=== PATIENT | female | born 1995 | race Caucasian/White ===

== ENCOUNTER 2017-07-23 19:29 | Emergency (ER) | payer OTHER ==
[2017-07-23 19:35] VITALS: BP 124/70; PULSE 82; RESP 20; TEMP 98.4
[2017-07-23] MEDS ORDERED: KETOROLAC 60 MG/2 ML VIAL IM STA (19:44)
[2017-07-23] MEDS ORDERED: ONDANSETRON ODT 4 MG TAB PO STA (19:47)
--- NOTE | 2017-07-23 20:02 | ED ---
General Adult HPI - General Chief complaint: Back Pain/Injury Stated complaint: Back pain Time Seen by Provider: 07/23/17 19:36 Source: patient, RN notes reviewed Mode of arrival: ambulatory Limitations: no limitations - History of Present Illness Initial comments: 22 yo female presents to the ER with cc of flare up of her chronic back pain as well as some nausea. she states that a few days ago she had cardiac arrest and since she's had a little nausea on and off. Patient states that she is here today because she had a flareup of her chronic back pain. She states that she often has to spit it just seems worse than normal. She denies any changes in urination. There is no fever or chills. She states that she was concerned due to the symptoms so she thought that she should be evaluated. She stated "typical back pain in the lower back. There is some radiation up the back. Patient denies any recent fever, chills, shortness of breath, chest pain, abdominal pain, nausea vomiting, numbness or tingling, dysuria or hematuria, constipation or diarrhea, headaches or visual changes, or any other current symptoms. - Related Data Home Medications Medication Instructions Recorded Confirmed No Known Home Medications [No 08/13/15 07/23/17 Known Home Medications] Allergies Allergy/AdvReac Type Severity Reaction Status Date / Time venom-honey bee Allergy Swelling Verified 07/23/17 19:34 [bee venom (honey bee)] Review of Systems ROS Statement: Those systems with pertinent positive or pertinent negative responses have been documented in the HPI. ROS Other: All systems not noted in ROS Statement are negative. Past Medical History Past Medical History: No Reported History History of Any Multi-Drug Resistant Organisms: None Reported Additional Past Surgical History / Comment(s): dev. septum Past Psychological History: No Psychological Hx Reported Smoking Status: Current some day smoker Past Alcohol Use History: None Reported Past Drug Use History: None Reported General Exam - General Exam Comments Initial Comments: General: The patient is awake and alert, in no distress, and does not appear acutely ill. Eye: Pupils are equal, round and reactive to light, extra-ocular movements are intact; there is normal conjunctiva bilaterally. No signs of icterus. Ears, nose, mouth and throat: There are moist mucous membranes. Neck: The neck is supple, there is no tenderness. Cardiovascular: There is a regular rate and rhythm. No murmur, rub or gallop is appreciated. Respiratory: Lungs are clear to auscultation, respirations are non-labored, breath sounds are equal. No wheezes, stridor, rales, or rhonchi. Gastrointestinal: Soft, non-distended, non-tender abdomen without masses or organomegaly noted. There is no rebound or guarding present. No CVA tenderness. Bowel sounds are unremarkable. Back: There is no tenderness to palpation in the midline. There is no obvious deformity. No rashes noted. Musculoskeletal: Normal ROM, no tenderness, There is no pedal edema. There is no calf tenderness or swelling. Sensation intact. Pulses equal bilaterally 2+. Neurological: CN II-XII intact, There are no obvious motor or sensory deficits. Coordination appears grossly intact. Speech is normal. Skin: Skin is warm and dry and no rashes or lesions are noted. Psychiatric: Cooperative, appropriate mood & affect, normal judgment. Limitations: no limitations Course Vital Signs 07/23/17 19:31 Temperature 98.4 F Pulse Rate 82 Respiratory 20 Rate Blood Pressure 124/70 O2 Sat by Pulse 100 Oximetry Medical Decision Making - Medical Decision Making 22-year-old female presents to the emergency department with a chief complaint of back pain. She does suffer from chronic back pain.at this time x-rays reviewed as well as urinalysis. At this time we discussed continuing Motrin Tylenol for pain. We discussed return parameters and follow-up and all questions. Patient stated that she understood and she is agreement this plan. All questions have been answered. She will be discharged. - Lab Data Lab Results 07/23/17 07/23/17 Range/Units 19:47 19:47 Urine Color Colorless Urine Appearance Clear (Clear) Urine pH 5.5 (5.0-8.0) Ur Specific [place] 1.004 (1.001-1.035) Urine Protein Negative (Negative) Urine Glucose (UA) Negative (Negative) Urine Ketones Negative (Negative) Urine Blood Small H (Negative) Urine Nitrite Negative (Negative) Urine Bilirubin Negative (Negative) Urine Urobilinogen <2.0 (<2.0) mg/dL Ur Leukocyte Esterase Negative (Negative) Urine RBC 1 (0-5) /hpf Urine WBC 2 (0-5) /hpf Ur Squamous Epith Cells 1 (0-4) /hpf Urine Bacteria Rare H (None) /hpf Urine Mucus Rare H (None) /hpf Urine HCG, Qual Not Detected (Not Detectd) - Radiology Data Radiology results: report reviewed, image reviewed Disposition Clinical Impression: Strain of lumbar region, Nausea Disposition: HOME SELF-CARE Condition: Stable Instructions: Chronic Back Pain (ED) Additional Instructions: Please use medication as discussed. Please follow up with family doctor if symptoms have not improved over the next two days. Please return to the emergency room if your symptoms increase or worsen or for any other concerns. Referrals: Adalgisa Cadena III, MD [STAFF PHYSICIAN] - 1-2 days Time of Disposition: 20:58
[2017-07-23 20:04] LABS: Appearance,Urine Clear (Clear); Bacteria,Urine Rare /hpf; Bilirubin,Urine Negative (Negative); Blood,Urine Small (Negative); Color,Urine Colorless; Glucose,Urine (UA) Negative (Negative); Ketones,Urine Negative (Negative); Leukocyte Esterase,Urine Negative (Negative); Mucus,Urine Rare /hpf; Nitrite,Urine Negative (Negative); PH, Urine 5.5 (5.0-8.0); Protein,Urine Negative (Negative); RBC,Urine 1 /hpf (0-5); Specific Gravity,Urine 1.004 (1.001-1.035); Squamous Epithelial Cell,Urine 1 /hpf (0-4); Urobilinogen,Urine <2.0 mg/dL (<2.0); WBC,Urine 2 /hpf (0-5)
--- NOTE | 2017-07-23 20:51 | XR ---
EXAMINATION TYPE: XR lumbar spine 2 or 3V DATE OF EXAM: 07/23/2017 COMPARISON: NONE HISTORY: Back pain TECHNIQUE: 3 views FINDINGS: The lumbar vertebra have normal alignment. Posterior elements are intact. Disc spaces are n ormal. IMPRESSION: Normal lumbar spine
== END 2017-07-23 21:03 | disposition home or self-care (01) ==
LOC: EC 19:29
DX: S39.012A Strain of muscle, fascia and tendon of lower back, initial encounter (principal); R11.0 Nausea; F17.200 Nicotine dependence, unspecified, uncomplicated; Z91.030 Bee allergy status
CPT/HCPCS: 81001; 81025; 87086; 72100; 99283; 96372; J1885

== ENCOUNTER 2018-01-22 16:34 | Emergency (ER) | payer OTHER ==
[2018-01-22 16:54] VITALS: BP 121/76; PULSE 77; RESP 16; TEMP 98.4
--- NOTE | 2018-01-22 17:25 | ED ---
Recheck HPI - General Chief Complaint: Recheck/Abnormal Lab/Rx Stated Complaint: test Time Seen by Provider: 01/22/18 17:11 Source: patient, RN notes reviewed Mode of arrival: ambulatory Limitations: no limitations - History of Present Illness Initial Comments: This is a 22-year-old female who presents to the emergency department with request for test. Patient states that she has been trying to get for 3 years. She states that this coming Wednesday she has an appointment for IVF consult. She states that her period has been 4 weeks late. She took two at-home tests which were positive. Patient presents to the emergency department requesting a test to confirm. Denies any fevers or chills, chest pain or firmness of breath, abdominal pain, vaginal bleeding, nausea or vomiting, diarrhea or constipation. - Related Data Home Medications Medication Instructions Recorded Confirmed No Known Home Medications 08/13/15 07/23/17 Allergies Allergy/AdvReac Type Severity Reaction Status Date / Time venom-honey bee Allergy Swelling Verified 01/22/18 16:54 [bee venom (honey bee)] Review of Systems ROS Statement: Those systems with pertinent positive or pertinent negative responses have been documented in the HPI. ROS Other: All systems not noted in ROS Statement are negative. Past Medical History Past Medical History: No Reported History History of Any Multi-Drug Resistant Organisms: None Reported Additional Past Surgical History / Comment(s): dev. septum Past Psychological History: No Psychological Hx Reported Smoking Status: Current every day smoker Past Alcohol Use History: None Reported Past Drug Use History: None Reported General Exam - General Exam Comments Initial Comments: General: Awake and alert, well-developed; in no apparent distress. HEENT: Head atraumatic, normocephalic. Pupils are equal, round and reactive to light. Extraocular movements intact. Oropharynx moist without erythema or exudate. Neck: Supple. Normal ROM. Cardiovascular: Regular rate and rhythm. No murmurs, rubs or gallops. Chest symmetrical. Respiratory: Lungs clear to auscultation bilaterally. No wheezes, rales or rhonchi. Normal respiratory effort with no use of accessory muscles. Musculoskeletal: Normal ROM, no tenderness bilateral upper and lower extremities. Ambulating normally. Skin: [place], warm and dry without rashes or lesions. Neurological: Alert and oriented x3. CN II-XII grossly intact. Speech is fluent and answers are appropriate. No focal neuro deficits. Psychiatric: Normal mood and affect. No overt signs of depression or anxiety noted. Limitations: no limitations Course Vital Signs 01/22/18 16:51 Temperature 98.4 F Pulse Rate 77 Respiratory 16 Rate Blood Pressure 121/76 O2 Sat by Pulse 100 Oximetry Medical Decision Making - Medical Decision Making This is a 22-year-old female who presents to the emergency department with request for urine test. test is positive. Patient excited with results. Vitals are stable and she is in no acute distress. She will be discharged home at this time. Recommended following up with an P[employer] WORKER. She is in agreement and voices understanding. All questions answered. - Lab Data Lab Results 01/22/18 Range/Units 17:00 Urine HCG, Qual Detected (Not Detectd) Disposition Clinical Impression: Positive urine test Disposition: HOME SELF-CARE Condition: Good Instructions: (ED) Additional Instructions: Please follow-up with an P[employer]Y WORKER. Please follow up with primary care provider within 1-2 days. Return to emergency department if symptoms should worsen or any concerns arise. Is patient prescribed a controlled substance at d/c from ED?: No Referrals: Loretta Cortez MD [Primary Care Provider] - 1-2 days Cata Rapp MD [STAFF PHYSICIAN] - 1-2 days Time of Disposition: 17:25
== END 2018-01-22 17:27 | disposition home or self-care (01) ==
LOC: EC 16:34
DX: Z32.01 Encounter for pregnancy test, result positive (principal); O99.330 Smoking (tobacco) complicating pregnancy, unspecified trimester; F17.200 Nicotine dependence, unspecified, uncomplicated; Z91.030 Bee allergy status; Z3A.00 Weeks of gestation of pregnancy not specified
CPT/HCPCS: 81025; 99281

== ENCOUNTER 2018-03-19 17:57 | Emergency (ER) | payer OTHER ==
[2018-03-19] MEDS ORDERED: ONDANSETRON 4 MG/2 ML VIAL IVP STA (18:26)
[2018-03-19] MEDS ORDERED: KETOROLAC 30 MG/ML 1 ML VIAL IVP STA (18:26)
[2018-03-19] MEDS ORDERED: MORPHINE SULFATE 2 MG/ML SYRINGE IVP STA (18:26)
[2018-03-19] MEDS ORDERED: SODIUM CHLORIDE 0.9% 1,000 ML IV ONE (18:26)
--- NOTE | 2018-03-19 18:48 | ED ---
Female Urogenital HPI - General Source: patient Mode of arrival: ambulatory Limitations: no limitations <Marilu Gilliland - Last Filed: 03/20/18 04:40> <Suys Acevedo - Last Filed: 03/22/18 01:08> - General Chief complaint: Vaginal Bleeding Stated complaint: POSS MISCARRAGE Time Seen by Provider: 03/19/18 18:12 - History of Present Illness Initial comments: 23-year-old female patient who is approximately 11 weeks with her first presents to the emergency department today for evaluation of increased vaginal bleeding. Patient states that she was diagnosed with a miscarriage by her CMS EXPERT. The patient states she was scheduled to have a D&C performed on Wednesday however she did start having bleeding on Wednesday so they were monitoring to see if she would spontaneously passed products of conception. Patient states that patient had increase in vaginal bleeding last evening however today it is been much worse. Patient states she has been passing large clots. She is reporting low back pain and lower abdominal pain. She states the pain is 10x worse than her usual period pain. Patient denies any fevers or chills. She denies any dysuria, urinary urgency, urinary frequency. States that she is nauseated with this as not vomited. Patient denies any recent rash, shortness breath, chest pain, diarrhea, constipation, numbness, tingling, dizziness, weakness, headache, visual changes, or any other complaints. (Marilu Gilliland) - Related Data Previous Rx's Medication Instructions Recorded Ibuprofen [Motrin] 600 mg PO Q8HR PRN #30 tab 03/19/18 Allergies Allergy/AdvReac Type Severity Reaction Status Date / Time venom-honey bee Allergy Swelling Verified 01/22/18 16:54 [bee venom (honey bee)] Review of Systems ROS Other: All systems not noted in ROS Statement are negative. <Marilu Gilliland - Last Filed: 03/20/18 04:40> ROS Other: All systems not noted in ROS Statement are negative. <Susy Acevedo - Last Filed: 03/22/18 01:08> ROS Statement: Those systems with pertinent positive or pertinent negative responses have been documented in the HPI. Past Medical History Past Medical History: No Reported History History of Any Multi-Drug Resistant Organisms: None Reported Additional Past Surgical History / Comment(s): dev. septum, oral surgery Past Psychological History: No Psychological Hx Reported Smoking Status: Current every day smoker Past Alcohol Use History: None Reported Past Drug Use History: None Reported <Marilu Gilliland Della - Last Filed: 03/20/18 04:40> General Exam Limitations: no limitations General appearance: alert, in no apparent distress, other (This is a well- developed, well-nourished adult female patient in no acute distress. Vital signs upon presentation are temperature 97.2F, pulse 74, respirations 18, blood pressure 136/69, pulse ox 98% on room air.) Eye exam: Present: normal appearance, PERRL, EOMI. Absent: scleral icterus, conjunctival injection, periorbital swelling ENT exam: Present: normal exam, normal oropharynx Respiratory exam: Present: normal lung sounds bilaterally. Absent: respiratory distress, wheezes, rales, rhonchi, stridor Cardiovascular Exam: Present: regular rate, normal rhythm, normal heart sounds. Absent: systolic murmur, diastolic murmur, rubs, gallop, clicks GI/Abdominal exam: Present: soft, normal bowel sounds. Absent: distended, tenderness, guarding, rebound, rigid Speculum exam: Present: vaginal bleeding, tissue, other (large clots) By manual exam: Present: uterine enlargement, uterine tenderness Back exam: Present: normal inspection. Absent: CVA tenderness (R), CVA tenderness (L) Neurological exam: Present: alert, oriented X3, CN II-XII intact Psychiatric exam: Present: normal affect, normal mood Skin exam: Present: warm, dry, intact, normal color. Absent: rash <Marilu Gilliland Della - Last Filed: 03/20/18 04:40> Vital Signs 03/19/18 03/19/18 18:07 21:06 Temperature 97.2 F L 98.4 F Pulse Rate 74 72 Respiratory 18 16 Rate Blood Pressure 136/69 110/53 O2 Sat by Pulse 98 98 Oximetry Medical Decision Making - Lab Data Result diagrams: 03/19/18 18:53 03/19/18 18:53 - Radiology Data Radiology results: report reviewed <Marilu Gilliland Della - Last Filed: 03/20/18 04:40> - Lab Data Result diagrams: 03/19/18 18:53 03/19/18 18:53 <Susy Acevedo - Last Filed: 03/22/18 01:08> - Medical Decision Making 23-year-old female patient presents to the emergency department today for evaluation of increased vaginal bleeding. Patient was diagnosed with demise at her CMS EXPERT's office and did start having bleeding on Wednesday. There were continuing to monitor her however patient had increased bleeding over the last couple of days so she presented here for further evaluation. Physical examination did reveal some lower abdominal tenderness. I did perform pelvic examination which did reveal copious amounts of blood in the vagina with large clots. I did pull what appeared to be a gestational sac from the cervical canal , this has been sent to the lab for evaluation. Patient did have ultrasound which did show some thickened endometrium which could be retained products of conception. Labs were reviewed and were unremarkable. Patient's vital signs remained stable throughout visit. I did recheck vaginal bleeding and it seems to have slowed significantly. I did call and discuss the case with the patient' s CMS EXPERT Dr. Mejia, she did recommend that we call our CMS EXPERT congressional aide and discussed the case with them for further guidance. My attending Dr. Acevedo did speak to Dr. Morley the CMS EXPERT on-call who recommends that patient follow -up with her CMS EXPERT as soon as possible. Patient was informed of all results and plan. She is instructed to call her CMS EXPERT for an appointment on Wednesday. Return parameters were discussed in detail. She verbalizes understanding and agrees with this plan. (Marilu Gilliland) Patient care was discussed with gynecology on-call Dr. Morley. Patient with known intrauterine demise with plan for D&C now having vaginal bleeding. Vaginal bleeding decreased significantly after evacuation of clots and products of conception from the cervix. Patient remains hemodynamically stable with a stable hemoglobin. At this time the patient is stable for discharge home and follow-up with her (Susy Acevedo) - Lab Data Lab Results 03/19/18 03/19/18 03/19/18 Range/Units 18:53 18:53 18:53 WBC 9.1 (3.8-10.6) k/uL RBC 4.05 (3.80-5.40) m/uL Hgb 12.3 (11.4-16.0) gm/dL Hct 38.0 (34.0-46.0) % MCV 93.8 (80.0-100.0) fL MCH 30.3 (25.0-35.0) pg MCHC 32.3 (31.0-37.0) g/dL RDW 12.5 (11.5-15.5) % Plt Count 249 (150-450) k/uL Neutrophils % 74 % Lymphocytes % 18 % Monocytes % 5 % Eosinophils % 2 % Basophils % 0 % Neutrophils # 6.7 (1.3-7.7) k/uL Lymphocytes # 1.7 (1.0-4.8) k/uL Monocytes # 0.5 (0-1.0) k/uL Eosinophils # 0.2 (0-0.7) k/uL Basophils # 0.0 (0-0.2) k/uL Sodium 138 (137-145) mmol/L Potassium 3.9 (3.5-5.1) mmol/L Chloride 108 H (98-107) mmol/L Carbon Dioxide 21 L (22-30) mmol/L Anion Gap 9 mmol/L BUN 4 L (7-17) mg/dL Creatinine 0.57 (0.52-1.04) mg/dL Est GFR (CKD-EPI)AfAm >90 (>60 ml/min/1.73 sqM) Est GFR (CKD-EPI)NonAf >90 (>60 ml/min/1.73 sqM) Glucose 93 (74-99) mg/dL Calcium 9.2 (8.4-10.2) mg/dL Total Bilirubin 0.4 (0.2-1.3) mg/dL AST 20 (14-36) U/L ALT 17 (9-52) U/L Alkaline Phosphatase 100 (38-126) U/L Total Protein 6.9 (6.3-8.2) g/dL Albumin 3.9 (3.5-5.0) g/dL Blood Type O Positive Blood Type Recheck No - Radiology Data Transvaginal and transabdominal ultrasound was obtained. Report was reviewed in its entirety. Impression by Dr. Lopez shows complex thickened area in the endometrial cavity that could relate to incomplete . No adnexal mass. (Marilu Gilliland) Disposition Is patient prescribed a controlled substance at d/c from ED?: No Time of Disposition: 22:11 <Marilu Gilliland M - Last Filed: 03/20/18 04:40> <Susy Acevedo P - Last Filed: 03/22/18 01:08> Clinical Impression: Spontaneous Disposition: HOME SELF-CARE Condition: Good Instructions: Miscarriage (ED) Additional Instructions: Take medication as directed. Follow-up with your CMS EXPERT for recheck as soon as possible. Return here immediately for any new, worsening, or concerning symptoms. Prescriptions: Ibuprofen [Motrin] 600 mg PO Q8HR PRN #30 tab PRN Reason: Pain Referrals: Loretta Cortez MD [Primary Care Provider] - 1-2 days
[2018-03-19 19:06] LABS: Basophils % (A) 0 %; Eosinophils # (A) 0.2 k/uL (0-0.7); Eosinophils % (A) 2 %; HGB 12.3 gm/dL (11.4-16.0); Lymphocytes # (A) 1.7 k/uL (1.0-4.8); Lymphocytes % (A) 18 %; MCH 30.3 pg (25.0-35.0); MCHC 32.3 g/dL (31.0-37.0); MCV 93.8 fL (80.0-100.0); Mean Platelet Volume 6.8; Monocytes # (A) 0.5 k/uL (0-1.0); Monocytes % (A) 5 %; Neutrophils # (A) 6.7 k/uL (1.3-7.7); Neutrophils % (A) 74 %; Platelet Count 249 k/uL (150-450); RBC 4.05 m/uL (3.80-5.40); RDW 12.5 % (11.5-15.5); WBC 9.1 k/uL (3.8-10.6)
[2018-03-19 19:38] LABS: ALT 17 U/L (9-52); AST 20 U/L (14-36); Albumin 3.9 g/dL (3.5-5.0); Alkaline Phosphatase 100 U/L (38-126); Anion Gap 9 mmol/L; Blood Urea Nitrogen 4 mg/dL (7-17); Calcium 9.2 mg/dL (8.4-10.2); Carbon Dioxide 21 mmol/L (22-30); Chloride 108 mmol/L (98-107); Glucose 93 mg/dL (74-99); Potassium 3.9 mmol/L (3.5-5.1); Sodium 138 mmol/L (137-145); Total Bilirubin 0.4 mg/dL (0.2-1.3); Total Protein 6.9 g/dL (6.3-8.2)
--- NOTE | 2018-03-19 20:18 | US ---
EXAMINATION TYPE: Transabdominal DATE OF EXAM: 10/05/17 COMPARISON: NONE CLINICAL HISTORY: Pain. Increased vaginal bleeding x 6 days in early ; G1 EXAM PERFORMED: Transvaginal (TV) and Transabdominal (TA) EXAM MEASUREMENTS: GESTATIONAL AGE / DATING Physician Established: (12 weeks/1 day) EDC: 09/30/2018 Dates by LMP: (12 weeks/1 day) EDC: 09/30/2018 Dates by First Scan: no prior US here Dates by Current Scan for: no live IUP seen today at this facility MATERNAL ANATOMY Uterus: 9.5 x 6.4 x 4.9cm Right Ovary: 2.2 x 1.1 x 1.1cm Left Ovary: 2.4 x 2.6 x 1.6cm Post CDS / Adnexa: wnl Presence of free fluid: minimal Cul De Sac fluid seen at cervix on Transvaginal US after post void Presence of corpus luteal cyst: not seen Presence of subchorionic bleed: complex and thickened endometrium is seen throughout and complex are a extends into cervix; small, irregular cystic clustered area in upper endometrium = 0.9 x 0.9 x 0.5c m and could represent products of conception. GESTATION / SURVEY CRL: no pole seen MSD: no normal appearing gestational sac with decidual reaction is seen Date of LMP: 12/24/2017 Beta HcG (if available): NA IMPRESSION: There is complex thickened area in the endometrial cavity the could relate to incomplete . No adnexal mass.
[2018-03-19 21:07] VITALS: BP 110/53; PULSE 72; RESP 16; TEMP 98.4
== END 2018-03-19 22:20 | disposition home or self-care (01) ==
LOC: EC 17:57
DX: O03.9 Complete or unspecified spontaneous abortion without complication (principal); O99.89 Other specified diseases and conditions complicating pregnancy, childbirth and the puerperium; R11.0 Nausea; O99.331 Smoking (tobacco) complicating pregnancy, first trimester; Z3A.11 11 weeks gestation of pregnancy; F17.200 Nicotine dependence, unspecified, uncomplicated; Z91.030 Bee allergy status
CPT/HCPCS: 36415; 86900; 86901; 80053; 85025; 76801; 76817; 99284; 96374; 96375 ×2; 96361 ×2; J2405; J1885; J2270; 88305

== ENCOUNTER 2023-11-26 18:06 | Emergency (ER) | payer OTHER ==
[2023-11-26 18:23] VITALS: RESP 18; TEMP 98.2
--- NOTE | 2023-11-26 19:12 | ED ---
Female Urogenital HPI - General Chief complaint: Vaginal Bleeding Stated complaint: vag bleeding,6 weeks preg Time Seen by Provider: 11/26/23 18:34 Source: patient, RN notes reviewed Mode of arrival: ambulatory Limitations: no limitations - History of Present Illness Initial comments: This is a 28-year-old female who presents to the emergency department for vaginal bleeding. Patient is and 6 weeks . States that the bleeding started yesterday. Describes this as more of a spotting. She has mild cramping of the lower abdomen. She is scheduled to see Joce Pathak for [facility] care on 12/07. She did have her hCG count checked 3 days ago and states that it was 6000. - Related Data Previous Rx's Medication Instructions Recorded Ibuprofen [Motrin] 600 mg PO Q8HR PRN #30 tab 03/19/18 Allergies Allergy/AdvReac Type Severity Reaction Status Date / Time venom-honey bee Allergy Swelling Verified 11/26/23 18:14 [bee venom (honey bee)] Review of Systems ROS Statement: Those systems with pertinent positive or pertinent negative responses have been documented in the HPI. ROS Other: All systems not noted in ROS Statement are negative. Past Medical History Past Medical History: No Reported History History of Any Multi-Drug Resistant Organisms: None Reported Additional Past Surgical History / Comment(s): dev. septum, oral surgery Past Psychological History: No Psychological Hx Reported Past Alcohol Use History: None Reported Past Drug Use History: None Reported General Exam Limitations: no limitations General appearance: alert, in no apparent distress Head exam: Present: atraumatic, normocephalic, normal inspection Respiratory exam: Present: normal lung sounds bilaterally. Absent: respiratory distress, wheezes, rales, rhonchi, stridor Cardiovascular Exam: Present: regular rate, normal rhythm, normal heart sounds. Absent: systolic murmur, diastolic murmur, rubs, gallop, clicks Neurological exam: Present: alert, oriented X3, CN II-XII intact Psychiatric exam: Present: normal affect, normal mood Skin exam: Present: warm, dry, intact, normal color. Absent: rash Course Vital Signs 11/26/23 11/26/23 18:11 22:15 Temperature 98.2 F Pulse Rate 91 87 Respiratory 18 18 Rate Blood Pressure 160/87 113/77 O2 Sat by Pulse 100 99 Oximetry Medical Decision Making - Medical Decision Making This is a 28 year old female who presents to the emergency department for vaginal bleeding in . Was pt. sent in by a medical professional or institution? @ -No Did you speak to anyone other than the patient for history? @ -No Did you review nursing and triage notes? @ -Yes, and I agree, it is accurate with regards to the patient's symptoms. Were old charts reviewed? @ -No Differential Diagnosis? @ -Differential Vaginal Bleeding: Spontaneous , threatened , molar , ectopic , incompetent cervix, placenta previa, uterine rupture, dysfunctional uterine bleeding, hemorrhage, uterine fibroids, malignancy, coagulopathy, PID, cervicitis, adenomyosis, vaginal trauma, this is not meant to be an all- inclusive list. EKG interpreted by me (3pts min.)? @ -Not obtained X-rays interpreted by me (1pt min.)? @ -Not obtained CT interpreted by me (1pt min.)? @ -Not obtained U/S interpreted by me (1pt. min.)? @ - ultrasound obtained. My interpretation identifies a gestational sac. What testing was considered but not performed? (CT, X-rays, U/S, labs)? Why? @ -None What meds were considered but not given? Why? @ -None Did you discuss the management of the patient with other professionals? @ -No Did you reconcile home meds? @ -No Was smoking cessation discussed for >3mins.? @ -No Was critical care preformed (if so, how long)? @ -No Were there social determinants of health that impacted care today? How? (Homelessness, low income, unemployed, alcoholism, drug addiction, transportation, low edu. Level, literacy, decrease access to med. care, snf, rehab)? @ -No Was there de-escalation of care discussed even if they declined? (Discuss DNR or withdrawal of care, Hospice)? @ -No What co-morbidities impacted this encounter? (DM, HTN, Smoking, COPD, CAD, Cancer, CVA, Hep., AIDS, mental health diagnosis, sleep apnea, morbid obesity)? @ - Was patient admitted / discharged? @ -Discharged. Lab work demonstrates a beta-hCG of 12,019. Patient is Rh+ and no RhoGAM is indicated. Urinalysis negative for signs of infection. ultrasound obtained demonstrating a gestational sac with suspected yolk sac. pole is not identified at this time. Advised possibilities of a blighted ovum in early . Findings reviewed with the patient. She was given a lab slip to have her hCG count repeated in 48 hours. Otherwise advised follow- up with her [facility]. Undiagnosed new problem with uncertain prognosis? @ -None Drug Therapy requiring intensive monitoring for toxicity (Heparin, Nitro, Insulin, Cardizem)? @ -None Were any procedures done? @ -None Diagnosis/symptom? @ -Vaginal bleeding in Acute, or Chronic, or Acute on Chronic? @ -Acute Uncomplicated (without systemic symptoms) or Complicated (systemic symptoms)? @ -Uncomplicated Side effects of treatment? @ -None Exacerbation, Progression, or Severe Exacerbation] @ -Not applicable Poses a threat to life or bodily function? @ -No Return precautions reviewed in depth, the patient is instructed to return to the emergency department with any new, worsening, or concerning symptoms. Patient verbalized understanding. This case was discussed in detail with the attending ED physician, Dr. White. Presentation, findings, and treatment plan discussed in detail as well. - Lab Data Result diagrams: 11/26/23 20:06 11/26/23 20:06 Lab Results 11/26/23 11/26/23 11/26/23 Range/Units 19:39 20:06 20:06 WBC 9.8 (3.8-10.6) k/uL RBC 4.43 (3.80-5.40) m/uL Hgb 13.6 (11.4-16.0) gm/dL Hct 42.0 (34.0-46.0) % MCV 94.8 (80.0-100.0) fL MCH 30.8 (25.0-35.0) pg MCHC 32.5 (31.0-37.0) g/dL RDW 12.8 (11.5-15.5) % Plt Count 328 (150-450) k/uL MPV 8.0 Neutrophils % 65 % Lymphocytes % 26 % Monocytes % 5 % Eosinophils % 2 % Basophils % 0 % Neutrophils # 6.4 (1.3-7.7) k/uL Lymphocytes # 2.6 (1.0-4.8) k/uL Monocytes # 0.5 (0-1.0) k/uL Eosinophils # 0.2 (0-0.7) k/uL Basophils # 0.0 (0-0.2) k/uL Sodium 136 L (137-145) mmol/L Potassium 4.3 (3.5-5.1) mmol/L Chloride 106 (98-107) mmol/L Carbon Dioxide 24 (22-30) mmol/L Anion Gap 6 mmol/L BUN 7 (7-17) mg/dL Creatinine 0.55 (0.52-1.04) mg/dL Est GFR (CKD-EPI)AfAm >90 (>60 ml/min/1.73 sqM) Est GFR (CKD-EPI)NonAf >90 (>60 ml/min/1.73 sqM) Glucose 84 (74-99) mg/dL Calcium 9.0 (8.4-10.2) mg/dL Total Bilirubin 0.3 (0.2-1.3) mg/dL AST 22 (14-36) U/L ALT 13 (4-34) U/L Alkaline Phosphatase 141 H (38-126) U/L Total Protein 7.2 (6.3-8.2) g/dL Albumin 4.0 (3.5-5.0) g/dL HCG, Quant 15932.3 mIU/mL Urine Color Colorless Urine Appearance Clear (Clear) Urine pH 6.5 (5.0-8.0) Ur Specific Marlin 1.004 (1.001-1.035) Urine Protein Negative (Negative) Urine Glucose (UA) Negative (Negative) Urine Ketones Negative (Negative) Urine Blood Small H (Negative) Urine Nitrite Negative (Negative) Urine Bilirubin Negative (Negative) Urine Urobilinogen <2.0 (<2.0) mg/dL Ur Leukocyte Esterase Negative (Negative) Urine RBC 2 (0-5) /hpf Urine WBC <1 (0-5) /hpf Ur Squamous Epith Cells 1 (0-4) /hpf Blood Type Blood Type Recheck Bld Type Recheck Status 11/26/23 Range/Units 20:06 WBC (3.8-10.6) k/uL RBC (3.80-5.40) m/uL Hgb (11.4-16.0) gm/dL Hct (34.0-46.0) % MCV (80.0-100.0) fL MCH (25.0-35.0) pg MCHC (31.0-37.0) g/dL RDW (11.5-15.5) % Plt Count (150-450) k/uL MPV Neutrophils % % Lymphocytes % % Monocytes % % Eosinophils % % Basophils % % Neutrophils # (1.3-7.7) k/uL Lymphocytes # (1.0-4.8) k/uL Monocytes # (0-1.0) k/uL Eosinophils # (0-0.7) k/uL Basophils # (0-0.2) k/uL Sodium (137-145) mmol/L Potassium (3.5-5.1) mmol/L Chloride (98-107) mmol/L Carbon Dioxide (22-30) mmol/L Anion Gap mmol/L BUN (7-17) mg/dL Creatinine (0.52-1.04) mg/dL Est GFR (CKD-EPI)AfAm (>60 ml/min/1.73 sqM) Est GFR (CKD-EPI)NonAf (>60 ml/min/1.73 sqM) Glucose (74-99) mg/dL Calcium (8.4-10.2) mg/dL Total Bilirubin (0.2-1.3) mg/dL AST (14-36) U/L ALT (4-34) U/L Alkaline Phosphatase (38-126) U/L Total Protein (6.3-8.2) g/dL Albumin (3.5-5.0) g/dL HCG, Quant mIU/mL Urine Color Urine Appearance (Clear) Urine pH (5.0-8.0) Ur Specific Marlin (1.001-1.035) Urine Protein (Negative) Urine Glucose (UA) (Negative) Urine Ketones (Negative) Urine Blood (Negative) Urine Nitrite (Negative) Urine Bilirubin (Negative) Urine Urobilinogen (<2.0) mg/dL Ur Leukocyte Esterase (Negative) Urine RBC (0-5) /hpf Urine WBC (0-5) /hpf Ur Squamous Epith Cells (0-4) /hpf Blood Type O Positive Blood Type Recheck O Pos Bld Type Recheck Status No - Radiology Data Radiology results: report reviewed, image reviewed Disposition Clinical Impression: Vaginal bleeding during Disposition: HOME SELF-CARE Additional Instructions: Return to the emergency department with any new, worsening, or concerning symptoms. We will contact you to follow-up on the results of your ultrasound when they come back. Take the lab slip to have your beta hCG count repeated in the next 48 hours. Is patient prescribed a controlled substance at d/c from ED?: No Referrals: Jorge Luis Diamond MD [Primary Care Provider] - 1-2 days Time of Disposition: 20:04
[2023-11-26 19:47] LABS: Appearance,Urine Clear (Clear); Bilirubin,Urine Negative (Negative); Blood,Urine Small (Negative); Color,Urine Colorless; Glucose,Urine (UA) Negative (Negative); Ketones,Urine Negative (Negative); Leukocyte Esterase,Urine Negative (Negative); Nitrite,Urine Negative (Negative); PH, Urine 6.5 (5.0-8.0); Protein,Urine Negative (Negative); RBC,Urine 2 /hpf (0-5); Specific Gravity,Urine 1.004 (1.001-1.035); Squamous Epithelial Cell,Urine 1 /hpf (0-4); Urobilinogen,Urine <2.0 mg/dL (<2.0); WBC,Urine <1 /hpf (0-5)
[2023-11-26 20:18] LABS: Basophils % (A) 0 %; Eosinophils # (A) 0.2 k/uL (0-0.7); Eosinophils % (A) 2 %; HGB 13.6 gm/dL (11.4-16.0); Lymphocytes # (A) 2.6 k/uL (1.0-4.8); Lymphocytes % (A) 26 %; MCH 30.8 pg (25.0-35.0); MCHC 32.5 g/dL (31.0-37.0); MCV 94.8 fL (80.0-100.0); Monocytes # (A) 0.5 k/uL (0-1.0); Monocytes % (A) 5 %; Neutrophils # (A) 6.4 k/uL (1.3-7.7); Neutrophils % (A) 65 %; Platelet Count 328 k/uL (150-450); RBC 4.43 m/uL (3.80-5.40); RDW 12.8 % (11.5-15.5); WBC 9.8 k/uL (3.8-10.6)
[2023-11-26 20:32] LABS: ALT 13 U/L (4-34); AST 22 U/L (14-36); African American GFR (CKD) >90 (>60 ml/min/1.73 sqM); Alkaline Phosphatase 141 U/L (38-126); Anion Gap 6 mmol/L; Blood Urea Nitrogen 7 mg/dL (7-17); Carbon Dioxide 24 mmol/L (22-30); Chloride 106 mmol/L (98-107); Glucose 84 mg/dL (74-99); Non-African American GFR(CKD) >90 (>60 ml/min/1.73 sqM); Potassium 4.3 mmol/L (3.5-5.1); Sodium 136 mmol/L (137-145); Total Bilirubin 0.3 mg/dL (0.2-1.3); Total Protein 7.2 g/dL (6.3-8.2)
[2023-11-26 20:48] LABS: HCG,Quantitative Serum 12019.3 mIU/mL
[2023-11-26 22:27] VITALS: BP 113/77; PULSE 87
--- NOTE | 2023-11-26 23:22 | US ---
EXAMINATION TYPE: Transabdominal DATE OF EXAM: 11/26/2023 8:01 PM COMPARISON: NONE for this CLINICAL INDICATION: Female, 28 years old with history of Vaginal bleeding in ; Vaginal blee ding. Hx 1 miscarriage, 1 , . EXAM PERFORMED: Transvaginal (TV) and Transabdominal (TA) EXAM MEASUREMENTS: GESTATIONAL AGE / DATING Physician Established: Not yet established Dates by LMP: (6 weeks/1 day) EDC: 07/20/2024 Dates by First Scan: This is first scan Dates by Current Scan for: (5 weeks/1 day) EDC: 07/27/2024 by gestational sac measurements. pole not seen at this time. MATERNAL ANATOMY Uterus: 8.9 x 5.6 x 4.1 cm Right Ovary: 2.7 x 2.3 x 1.1 cm Left Ovary: 3.9 x 2.8 x 2.4 cm. *Area of mixed echogenicity and peripheral vascularity seen within: 3 .3 x 2.4 x 1.9 cm. Post CDS / Adnexa: Free fluid seen within CDS Presence of free fluid: Fluid seen within CDS* Presence of corpus luteal cyst: Possible- Area of mixed echogenicity and peripheral vascularity seen within the left ovary: 3.3 x 2.4 x 1.9 cm. Presence of subchorionic bleed: Possible- *Hypoechoic/heterogeneous area seen inferior to the gestati onal sac measures: 0.9 x 1.2 x 0.8 cm. GESTATION / SURVEY CRL: Not visualized at this time MSD: 1.07 cm (5 weeks/1 day) Yolk Sac (normal less than 6mm): Possible yolk sac seen measures 2.3 mm, indistinct. Heart Rate: No pole seen at this time IUP: Gestational sac with possible yolk sac seen at this time. Date of LMP: 10/14/2023 Beta HcG (if available): Not available Urinary bladder is sonolucent. Posterior wall is normal. Normal free fluid is within the cul-de-sac. IMPRESSION: 1. Gestational sac with suspected yolk sac. pole is not identified at this time. Differential diagnosis includes blighted ovum and early . Correlate with serial beta hCG and follow-up ultrasound exam is recommended.
== END 2023-11-26 22:16 | disposition home or self-care (01) ==
LOC: EC 18:06
DX: O20.9 Hemorrhage in early pregnancy, unspecified (principal); Z3A.01 Less than 8 weeks gestation of pregnancy; Z91.030 Bee allergy status
CPT/HCPCS: 36415; 76801; 76817; 80053; 81001; 84702; 85025; 86900; 86901; 99284

== ENCOUNTER → 2023-11-28 | Outpatient (CLI) | payer OTHER | END | disposition home or self-care (01) | LOC: LABMAIN 15:00 | PROVIDERS: ATTEND Physician Assistant | DX: O20.0 Threatened abortion (principal); Z3A.00 Weeks of gestation of pregnancy not specified | CPT/HCPCS: 84702 ==

== ENCOUNTER 2024-11-06 04:38 | Emergency (ER) | payer OTHER ==
[2024-11-06 04:48] VITALS: TEMP 98.2
--- NOTE | 2024-11-06 04:59 | ED ---
Anxiety HPI - General Chief Complaint: Anxiety Stated Complaint: Heart Racing/Panic Attack Time Seen by Provider: 11/06/24 04:52 Source: patient, RN notes reviewed, old records reviewed Mode of arrival: ambulatory - History of Present Illness Initial Comments: This is a 29-year-old female presenting today for evaluation of anxiety reaction states she could not sleep because her heart was racing increase stress in her life is current with blood pressure concerned with heart racing and concerned that she is having to worsen anxiety attack. Patient denies homicidal suicidal thoughts no drugs or alcohol MD Complaint: anxiety, heart racing -: hour(s) Symptoms: palpitations Place: home Previous History of Same: Yes Severity: moderate Quality: constant Provoking factors: emotional stress Improves With: nothing Worsens With: nothing Associated symptoms: palpitations - Related Data Home Medications: Previous Rx's Medication Instructions Recorded Ibuprofen [Motrin] 600 mg PO Q8HR PRN #30 tab 03/19/18 Allergies/Adverse Reactions: Allergies Allergy/AdvReac Type Severity Reaction Status Date / Time venom-honey bee Allergy Swelling Verified 11/06/24 04:44 [bee venom (honey bee)] Review of Systems ROS Statement: Those systems with pertinent positive or pertinent negative responses have been documented in the HPI. ROS Other: All systems not noted in ROS Statement are negative. Past Medical History Past Medical History: No Reported History History of Any Multi-Drug Resistant Organisms: None Reported Additional Past Surgical History / Comment(s): dev. septum, oral surgery, kidney stone placement Past Psychological History: No Psychological Hx Reported Smoking Status: Current every day smoker Past Alcohol Use History: Occasional Past Drug Use History: None Reported General Exam Limitations: no limitations General appearance: alert, in no apparent distress, anxious Head exam: Present: atraumatic, normocephalic, normal inspection Eye exam: Present: normal appearance, PERRL, EOMI. Absent: scleral icterus, conjunctival injection, periorbital swelling ENT exam: Present: normal exam, mucous membranes moist Neck exam: Present: normal inspection. Absent: tenderness, meningismus, lymphadenopathy Respiratory exam: Present: normal lung sounds bilaterally. Absent: respiratory distress, wheezes, rales, rhonchi, stridor Cardiovascular Exam: Present: normal rhythm, tachycardia, normal heart sounds. Absent: systolic murmur, diastolic murmur, rubs, gallop, clicks GI/Abdominal exam: Present: soft, normal bowel sounds. Absent: distended, tenderness, guarding, rebound, rigid Extremities exam: Present: normal inspection, full ROM, normal capillary refill. Absent: tenderness, pedal edema, joint swelling, calf tenderness Back exam: Present: normal inspection Neurological exam: Present: alert, oriented X3, CN II-XII intact Psychiatric exam: Present: normal affect, normal mood Skin exam: Present: warm, dry, intact, normal color. Absent: rash Course Vital Signs 11/06/24 11/06/24 04:44 06:47 Temperature 98.2 F Pulse Rate 111 H 98 Respiratory 18 17 Rate Blood Pressure 144/96 118/79 O2 Sat by Pulse 97 99 Oximetry - Reevaluation(s) Reevaluation #1: 11/06/24 05:10 Records reviewed Reevaluation #2: 11/06/24 05:10 Patient's symptoms improved Reevaluation #3: 11/06/24 05:10 Patient informed of results questions answered Reevaluation #4: Was pt. sent in by a medical professional or institution (, PA, REAL ESTATE INVESTMENT ANALYST, urgent care, hospital, or shelter...) When possible be specific @ -no Did you speak to anyone other than the patient for history (EMS, parent, family, police, friend...)? What history was obtained from this source @ -no Did you review nursing and triage notes (agree or disagree)? Why? @ -agree Are old charts reviewed (outside hosp., previous admission, EMS record, old EKG, old radiological studies, urgent care reports/EKG's, shelter records)? Report findings @ -yes Differential Diagnosis (chest pain, altered mental status, abdominal pain women, abdominal pain men, vaginal bleeding, weakness, fever, dyspnea, syncope, headache, dizziness, GI bleed, back pain, seizure, CVA, palpatations, mental health, musculoskeletal)? @ -prior EKG interpreted by me (3pts min.). @ -yes X-rays interpreted by me (1pt min.). @ -yes negative for acute disease CT interpreted by me (1pt min.). @ -no U/S interpreted by me (1pt. min.). @ -no What testing was considered but not performed or refused? (CT, X-rays, U/S, labs)? Why? @ -none What meds were considered but not given or refused? Why? @ -none Did you discuss the management of the patient with other professionals (professionals i.e. , PA, REAL ESTATE INVESTMENT ANALYST, lab, RT, psych nurse, social welfare research worker, wood patternmaker apprentice, teacher, staff weapons officer, family preservation caseworker)? Give summary @ -no Was smoking cessation discussed for >3mins.? @ -no Was critical care preformed (if so, how long)? @ -no Were there social determinants of health that impacted care today? How? (Homelessness, low income, unemployed, alcoholism, drug addiction, tra nsportation, low edu. Level, literacy, decrease access to med. care, shelter, rehab)? @ -none Was there de-escalation of care discussed even if they declined (Discuss DNR or withdrawal of care, Hospice)? DNR status @ -no What co-morbidities impacted this encounter? (DM, HTN, Smoking, COPD, CAD, Cancer, CVA, ARF, Chemo, Hep., AIDS, mental health diagnosis, sleep apnea, morbid obesity)? @ -none Was patient admitted / discharged? Hospital course, mention meds given and route, prescriptions, significant lab abnormalities, going to OR and other pertinent info. @ - Undiagnosed new problem with uncertain prognosis? @ -no Drug Therapy requiring intensive monitoring for toxicity (Heparin, Nitro, Insulin, Cardizem)? @ -no Were any procedures done? @ -no Diagnosis/symptom? @ - Acute, or Chronic, or Acute on Chronic? @ -Acute Uncomplicated (without systemic symptoms) or Complicated (systemic symptoms)? @ -Complicated Side effects of treatment? @ -no Exacerbation, Progression, or Severe Exacerbation? @ -exacerbation Poses a threat to life or bodily function? How? (Chest pain, [place], [place], pneumonia, PE, COPD, DKA, ARF, appy, cholecystitis, CVA, Diverticulitis, Homicidal, Suicidal, threat to staff... and all critical care pts) @ -yes Medical Decision Making - Medical Decision Making Female to ER for evaluation of anxiety reaction. Symptoms resolved here in the ER and can be discharged home Disposition Clinical Impression: Acute anxiety, Panic attack Disposition: HOME SELF-CARE Condition: Fair Instructions (If sedation given, give patient instructions): Generalized Anxiety Disorder (ED) Is patient prescribed a controlled substance at d/c from ED?: No Referrals: None,Stated [Primary Care Provider] - 1-2 days Time of Disposition: 06:00
[2024-11-06] MEDS: LORazepam 1 MG TAB PO STA (05:11)
[2024-11-06 06:48] VITALS: BP 118/79; PULSE 98; RESP 17
== END 2024-11-06 06:48 | disposition home or self-care (01) ==
LOC: EC 04:38
DX: F41.9 Anxiety disorder, unspecified (principal); F41.0 Panic disorder [episodic paroxysmal anxiety]; F17.200 Nicotine dependence, unspecified, uncomplicated; Z91.030 Bee allergy status
CPT/HCPCS: 99283